=== PATIENT | female | born 1995 | race Hispanic/Latino ===

== ENCOUNTER 2022-06-04 12:36 | Outpatient (CLI) | payer OTHER | END 2022-06-04 12:37 | disposition home or self-care (01) | LOC: BICULT 12:36 | PROVIDERS: ATTEND Family Medicine | DX: O09.892 Supervision of other high risk pregnancies, second trimester (principal); O44.42 Low lying placenta NOS or without hemorrhage, second trimester; Z3A.22 22 weeks gestation of pregnancy | CPT/HCPCS: 76805 ==